=== PATIENT | male | born 1995 | race American Indian/Alaskan Native ===

== ENCOUNTER 2016-05-16 09:04 | Emergency (ER) | payer OTHER ==
--- NOTE | 2016-05-16 12:32 | Emergency Department Report ---
ED Upper Extremity Inj HPI - General Chief Complaint: Extremity Injury, Upper Stated Complaint: FELL/RT ARM INJURY Time Seen by Provider: 05/16/16 12:32 Source: patient Mode of arrival: Ambulatory Limitations: No Limitations - History of Present Illness Initial Comments: Patient reports he slipped and fell on the ice last week and injured his right wrist. Complaint: Injury to:: right, wrist Onset/Timin -: week(s) Other Extremity Injury: Wrist: Right Other Injuries: none Handedness: right Place: home Severity scale (0 -10): 4 Improves With: rest Worsens With: movement of extremity Context: fall Associated Symptoms: denies other symptoms. denies: weakness, numbness, neck pain, suspects foreign body, nausea/vomiting, heard/felt popping sensat Treatments Prior to Arrival: other (none) - Related Data Previous Rx's Medication Instructions Recorded Last Taken Type Ibuprofen [Motrin 800 MG tab] 800 mg PO Q8HR PRN #20 tablet 05/16/16 Unknown Rx Allergies Allergy/AdvReac Type Severity Reaction Status Date / Time No Known Allergies Allergy Unverified 05/16/16 09:23 ED Review of Systems ROS: Stated complaint: FELL/RT ARM INJURY Other details as noted in HPI Constitutional: denies: chills, diaphoresis, fever, malaise, weakness Respiratory: denies: cough, orthopnea, shortness of breath, SOB with exertion, SOB at rest, stridor, wheezing Cardiovascular: denies: chest pain, palpitations, dyspnea on exertion, orthopnea , edema, syncope, paroxysmal nocturnal dyspnea Musculoskeletal: arthralgia (right wrist). denies: back pain, joint swelling, myalgia Neurological: denies: headache, weakness, numbness, paresthesias, confusion, abnormal gait, vertigo Hematological/Lymphatic: denies: easy bleeding, easy bruising, swollen glands ED Past Medical Hx - Past Medical History Previous Medical History?: No - Surgical History Past Surgical History?: No - Social History Smoking Status: Never Smoker Substance Use Type: None - Medications Home Medications: Home Medications Medication Instructions Recorded Confirmed Last Taken Type Ibuprofen [Motrin 800 MG tab] 800 mg PO Q8HR PRN #20 tablet 05/16/16 Unknown Rx ED Physical Exam - General Limitations: No Limitations General appearance: alert, in no apparent distress - Head Head exam: Present: atraumatic - ENT ENT exam: Present: normal exam, mucous membranes moist. Absent: mucous membranes dry - Neck Neck exam: Present: normal inspection, full ROM. Absent: tenderness, meningismus, lymphadenopathy, thyromegaly - Respiratory Respiratory exam: Present: normal lung sounds bilaterally. Absent: respiratory distress, wheezes, rales, rhonchi, stridor, chest wall tenderness, accessory muscle use, decreased breath sounds, prolonged expiratory - Cardiovascular Cardiovascular Exam: Present: regular rate, normal rhythm, normal heart sounds. Absent: systolic murmur, diastolic murmur, rubs, gallop, clicks, JVD, S3, S4 - Expanded Upper Extremity Exam Right Elbow exam: Present: normal inspection, full ROM. Absent: tenderness, swelling , abrasion, laceration, ecchymosis, deformity, crepidus, dislocation, erythema, effusion, tenderness over radial head Forearm Wrist exam: Present: full ROM, tenderness (palpation to anterior), swelling (minimal to anterior), ecchymosis. Absent: abrasion, laceration, deformity, crepidus, dislocation, erythema, tenderness over anatomical snuff box , pain with axial thumb loading Hand Wrist exam: Present: normal inspection, full ROM. Absent: tenderness, swelling, abrasion, laceration, ecchymosis, deformity, crepidus, dislocation, erythema, amputation, nail avulsion, subungual hematoma Neuro motor exam: Present: wrist extension intact, thumb opposition intact, thumb IP flexion intact, thumb adduction intact, fingers 2-5 abduction intact Neurosensory exam: Present: 2-point discrimination, radial nerve intact, ulnar nerve intact, median nerve intact Vascular: Present: normal capillary refill, radial pulse (2+), brachial pulse (2 +), ulnar pulse (2+). Absent: vascular compromise, Pallo, pulse deficit radial art, pulse deficit ulnar art, pulse deficit brachial art - Back Exam Back exam: Present: normal inspection, full ROM. Absent: CVA tenderness (R), CVA tenderness (L), muscle spasm, paraspinal tenderness, vertebral tenderness - Neurological Exam Neurological exam: Present: alert, oriented X3, CN II-XII intact, normal gait, reflexes normal. Absent: motor sensory deficit - Skin Skin exam: Present: warm, dry, intact, normal color. Absent: rash ED Course Vital Signs 05/16/16 09:18 Temperature 98.5 F Pulse Rate 79 Respiratory 16 Rate Blood Pressure 155/90 O2 Sat by Pulse 100 Oximetry - Reevaluation(s) Reevaluation #1: 05/16/16 13:15 Analgesics and radiology studies ordered ED Medical Decision Making - Lab Data Vital Signs 05/16/16 09:18 Temperature 98.5 F Pulse Rate 79 Respiratory 16 Rate Blood Pressure 155/90 O2 Sat by Pulse 100 Oximetry - Radiology Data Radiology results: image reviewed RIGHT WRIST THREE VIEWS: 05/16/16 12:31:00 CLINICAL: Fall and pain. FINDINGS: Normal bones, joints and soft tissues. No fracture or dislocation. IMPRESSION: Normal - Medical Decision Making During the course of ED, analgesic and radiology studies were ordered. The imaging study revealed normal study. Patient was sent home with a velcro wrist splint and a prescription for Ibuprofen, instructed to follow up with the selective referral given at discharge, he verbalized understanding - Differential Diagnosis Right Wrist Pain, Right Wrist Fracture, Fall Critical care attestation.: If time is entered above; I have spent that time in minutes in the direct care of this critically ill patient, excluding procedure time. ED Disposition Clinical Impression: Right wrist pain Disposition: DISCHARGED TO HOME OR SELFCARE Is pt being admited?: No Does the pt Need Aspirin: No Condition: Stable Instructions: Wrist Injury (ED) Additional Instructions: Take medication as directed. Wear splint for comfort. Follow up with the selective referral given at discharge Prescriptions: Ibuprofen [Motrin 800 MG tab] 800 mg PO Q8HR PRN #20 tablet PRN Reason: Pain Referrals: PRIMARY MD TOMA [Primary Care Provider] - 3-5 Days DONG WATSON MD [Staff Physician] - 3-5 Days Forms: Work/School Release Form(ED) Time of Disposition: 13:38
--- NOTE | 2016-05-16 13:19 | XRay Report ---
RIGHT WRIST THREE VIEWS: 05/16/16 12:31:00 CLINICAL: Fall and pain. FINDINGS: Normal bones, joints and soft tissues. No fracture or dislocation. IMPRESSION: Normal
[2016-05-16 14:35] VITALS: BP 150/90
== END 2016-05-16 14:00 | disposition home or self-care (01) ==
LOC: ED 09:04
DX: S69.91XA Unspecified injury of right wrist, hand and finger(s), initial encounter (principal); M25.531 Pain in right wrist; W01.0XXA Fall on same level from slipping, tripping and stumbling without subsequent striking against object, initial encounter; Y93.9 Activity, unspecified; Y92.9 Unspecified place or not applicable; Y99.9 Unspecified external cause status

== ENCOUNTER 2020-10-28 09:17 | Emergency (ER) | payer OTHER ==
[2020-10-28 09:44] LABS: Basophils # (Auto) 0.1 K/mm3 (0.0-0.1); Basophils % (Auto) 0.9 % (0.0-1.8); Eosinophils # (Auto) 0.1 K/mm3 (0.0-0.4); Eosinophils % (Auto) 1.9 % (0.0-4.3); Hematocrit 44.6 % (35.5-45.6); Lymphocytes # (Auto) 2.7 K/mm3 (1.2-5.4); Lymphocytes % (Auto) 40.8 % (13.4-35.0); Mean Corpuscular HGB Conc 34 % (32-34); Mean Corpuscular Volume 85 fl (84-94); Monocytes # (Auto) 0.6 K/mm3 (0.0-0.8); Monocytes % (Auto) 8.3 % (0.0-7.3); Platelet Count 252 K/mm3 (140-440); Red Blood Count 5.23 M/mm3 (3.65-5.03); Red Cell Distribution Width 13.9 % (13.2-15.2)
[2020-10-28 10:00] LABS: Alanine Aminotransferase 35 units/L (7-56); Albumin 4.4 g/dL (3.9-5); BUN/Creatinine Ratio 8; Blood Urea Nitrogen 8 mg/dL (9-20); Calcium 9.6 mg/dL (8.4-10.2); Hemolysis Index 9
[2020-10-28 10:24] LABS: Bilirubin,Urine NEG (Negative); Blood,Urine NEG (Negative); Color,Urine Amber (Yellow); Hyaline Casts,Urine 2 /LPF; Mucus,Urine 3+ /HPF; Urobilinogen,Urine < 2.0 mg/dL (<2.0)
[2020-10-28 10:29] LABS: Amphetamine Screen,Urine Negative; Benzodiazepines Screen,Urine Negative; Cocaine Screen,Urine Negative; Methadone Screen,Urine Negative; Opiate Screen,Urine Negative
[2020-10-28 10:54] LABS: Cannabinoid Screen,Urine PRESUMPTIVE POSITIVE
--- NOTE | 2020-10-28 11:34 | Cat Scan Report ---
CT HEAD WITHOUT CONTRAST INDICATION / CLINICAL INFORMATION: Syncopal episode resulting in patient fall with head and facial injuries. TECHNIQUE: All CT scans at this location are performed using CT dose reduction for ALARA by means of automated e xposure control. COMPARISON: None available. FINDINGS: HEMORRHAGE: No evidence of intracranial hemorrhage or extra-axial fluid collection. EXTRA-AXIAL SPACES: Cortical sulci, sylvian fissures and basilar cisterns have an unremarkable appear ance. VENTRICULAR SYSTEM: The third and lateral ventricles are of normal size and configuration. CEREBRAL PARENCHYMA: No areas of abnormal brain parenchymal attenuation are identified. There is no i ndication of recent infarction. MIDLINE SHIFT OR HERNIATION: There is no mass effect. CEREBELLUM / BRAINSTEM: Brainstem and cerebellum have an unremarkable appearance. MIDLINE STRUCTURES:No abnormalities of the pituitary gland or pineal region are identified. INTRACRANIAL VESSELS:No abnormalities are identified on this noncontrast head CT. ORBITS: visualized portions of the orbits have an unremarkable appearance. SOFT TISSUES of HEAD: Multifocal scalp calcifications are observed. A left forehead scalp hematoma is demonstrated. CALVARIUM: Evaluation of bone windows reveals no abnormalities. PARANASAL SINUSES / MASTOID AIR CELLS: Visualized portions of the paranasal sinuses are free from inf lammatory mucosal disease. Mastoid air cells are normally pneumatized. IMPRESSION: 1. No intracranial abnormalities on head CT without contrast. Signer Name: Roberto Villanueva MD Signed: 10/28/2020 11:30 AM Workstation Name: [id number]
--- NOTE | 2020-10-28 11:42 | Cat Scan Report ---
CT MAXILLOFACIAL WITHOUT CONTRAST INDICATION / CLINICAL INFORMATION: Syncopal episodes resulting in patient fall with head and facial injuries. Facial swelling and abrasi ons. TECHNIQUE: All CT scans at this location are performed using CT dose reduction for ALARA by means of automated e xposure control. COMPARISON: None available. FINDINGS: FACIAL BONES: No fracture or other significant abnormality. Soft tissue face: A scalp hematoma is present at the left forehead extending down to the preseptal sp jose in the region of the upper left eyelid and bridge of nose. OYSTER SORTER SPACES:Evaluation of the superintendent operations division space structures reveal no abnormalities. SALIVARY GLANDS: No abnormality. PARANASAL SINUSES: No significant abnormality. NASAL CAVITY: Mild pneumatization of the stalk of the left middle turbinate is noted. No significant abnormality. ORBITS: Globes, optic nerves and extraocular muscles have an unremarkable appearance. TEMPORAL BONES:Visualized mastoid air cells and the middle ear cavities are normally pneumatized. VISUALIZED INTRACRANIAL STRUCTURES: Please refer to CT head report which is dictated separately. IMPRESSION: 1. Left forehead scalp hematoma. 2. No indication of facial fracture. Signer Name: Roberto Villanueva MD Signed: 10/28/2020 11:37 AM Workstation Name: [id number]
--- NOTE | 2020-10-28 11:43 | Cat Scan Report ---
CT CERVICAL SPINE WITHOUT CONTRAST INDICATION / CLINICAL INFORMATION: Syncopal episode resulting in patient fall. Neck pain. TECHNIQUE: Axial CT images were obtained through the cervical spine. Sagittal and coronal reformatted images wer e produced. All CT scans at this location are performed using CT dose reduction for ALARA by means of automated exposure control. COMPARISON: None available. FINDINGS: ALIGNMENT: No significant abnormality. VERTEBRAE: No significant abnormality. DISC SPACES: No significant abnormality. DEGENERATIVE CHANGES: No significant degenerative changes. No indication of disc herniation, central canal stenosis or neuroforaminal narrowing. CRANIOCERVICAL JUNCTION:No significant abnormality. SPINAL CANAL: Central spinal canal is adequately maintained throughout. PARASPINAL SOFT TISSUES: No significant abnormality. ADDITIONAL FINDINGS: None. LUNG APICES: Lung apices are largely excluded. IMPRESSION: 1. No indication of fracture, traumatic subluxation or degenerative change. Signer Name: Roberto Villanueva MD Signed: 10/28/2020 11:39 AM Workstation Name: [employer] [id number]
--- NOTE | 2020-10-28 11:58 | Emergency Department Report ---
ED Syncope HPI - General Chief Complaint: Syncope Stated Complaint: FACIAL INJURY Time Seen by Provider: 10/28/20 10:17 Source: patient, RN notes reviewed Exam Limitations: no limitations - History of Present Illness Initial Comments: This is a 25-year-old male nontoxic, well nourished in appearance, no acute signs of distress presents to the ED with c/o of syncopal episode that occurred 2 days ago at 3 AM. Patient stated he was in a car and started to become dizzy and had a syncopal episode outside and fell to his left facial area. Patient stated has slight headache and neck pain after 2 syncopal episode. Patient stated mother bystander was present during this occurrence. Patient denies any alcohol or drug consumption. Patient denies any injuries or trauma prior to syncopal episode. Currently patient denies any dizziness. Patient denies any numbness, tingling, headache, stiff neck, chest pain, shortness of breathe, numbness or tingling. Denies any visual changes or blurry vision. Denies any drug allergies. Patient state he is not up-to-date with tetanus. Precipitating Factors: Positive: lightheadedness. Negative: blurred vision, confusion, diaphoresis, injury, nausea, pain, recent head trauma, rapid heart beat Context: standing Loss of Consciousness: brief (seconds) Current Symptoms: back to normal, headache. denies: blurred vision, chest pain, diaphoresis, dizziness, injury, lightheadedness, loss of bladder control, loss of bowel control, motionless, nausea, pale, shallow/rapid breathing, weak/absent pulse, weakness - Related Data Allergies/Adverse Reactions: Allergies No Known Allergies Allergy (Verified 10/28/20 09:22) Home Medications: Ambulatory Orders Ibuprofen [Motrin 800 MG tab] 800 mg PO Q8HR PRN #20 tablet 05/16/16 cephALEXin [Keflex] 500 mg PO Q8HR #21 cap 10/28/20 ED Review of Systems ROS: Stated complaint: FACIAL INJURY Other details as noted in HPI Comment: All other systems reviewed and negative Constitutional: denies: chills, fever Eyes: denies: eye pain, eye discharge, vision change ENT: denies: ear pain, throat pain Respiratory: denies: cough, shortness of breath, wheezing Cardiovascular: denies: chest pain, palpitations Endocrine: no symptoms reported Gastrointestinal: denies: abdominal pain, nausea, diarrhea Genitourinary: denies: urgency, dysuria Musculoskeletal: denies: back pain, joint swelling, arthralgia Skin: denies: rash, lesions Neurological: headache. denies: weakness, numbness, paresthesias, confusion, abnormal gait, vertigo Psychiatric: denies: anxiety, depression Hematological/Lymphatic: denies: easy bleeding, easy bruising ED Past Medical Hx - Social History Smoking Status: Never Smoker Substance Use Type: None - Medications Home Medications: Home Medications Medication Instructions Recorded Confirmed Last Taken Type Ibuprofen [Motrin 800 MG tab] 800 mg PO Q8HR PRN #20 tablet 05/16/16 Unknown Rx cephALEXin [Keflex] 500 mg PO Q8HR #21 cap 10/28/20 Unknown Rx ED Physical Exam - General Limitations: No Limitations General appearance: alert, in no apparent distress - Head Head exam: Present: normocephalic - Expanded Head Exam Expanded Head exam: Present: abrasion 1 - abrasion here 2 - abrasion here - Eye Eye exam: Present: normal appearance, PERRL, EOMI - ENT ENT exam: Present: normal exam, normal orophraynx, other (Normal carotid exam. No carotid bruits.) - Neck Neck exam: Present: normal inspection, full ROM. Absent: lymphadenopathy - Respiratory Respiratory exam: Present: normal lung sounds bilaterally. Absent: respiratory distress, wheezes, rales, rhonchi, stridor, chest wall tenderness, accessory muscle use, decreased breath sounds, prolonged expiratory - Cardiovascular Cardiovascular Exam: Present: regular rate, normal rhythm, normal heart sounds. Absent: bradycardia, tachycardia, irregular rhythm, systolic murmur, diastolic murmur, rubs, gallop - GI/Abdominal GI/Abdominal exam: Present: soft, normal bowel sounds. Absent: distended, tenderness, guarding, rebound, rigid, diminished bowel sounds - Extremities Exam Extremities exam: Present: normal inspection, full ROM - Back Exam Back exam: Present: normal inspection, full ROM, paraspinal tenderness (Cervical paraspinal). Absent: tenderness, CVA tenderness (R), CVA tenderness (L), muscle spasm, vertebral tenderness, rash noted - Neurological Exam Neurological exam: Present: alert, oriented X3, normal gait - Expanded Neurological Exam Expanded Patient oriented to: Present: person, place, time Cranial nerves: EOM's Intact: Normal, Facial Sensation: Normal Cerebellar function: Finger to Nose: Normal Upper motor neuron: Pronator Drift: Normal, Sensory Extinction: Normal Motor strength exam: RUE: 5, LUE: 5, RLE: 5, LLE: 5 Best Eye Response (Katina): (4) open spontaneously Best Motor Response (Katina): (6) obeys commands Best Verbal Response (Katina): (5) oriented Katina Total: 15 - Psychiatric Psychiatric exam: Present: normal affect, normal mood - Skin Skin exam: Present: warm, dry, intact, normal color. Absent: rash ED Course Vital Signs 10/28/20 10/28/20 10/28/20 09:20 09:38 09:46 Temperature 98.3 F Pulse Rate 70 59 L Respiratory 18 19 18 Rate Blood Pressure 128/77 138/75 O2 Sat by Pulse 99 98 99 Oximetry 10/28/20 10/28/20 10/28/20 10:00 10:16 10:30 Temperature Pulse Rate 63 58 L 54 L Respiratory 18 19 17 Rate Blood Pressure 130/82 130/71 123/70 O2 Sat by Pulse 97 98 99 Oximetry 10/28/20 10/28/20 10:46 11:00 Temperature Pulse Rate 56 L 55 L Respiratory 17 12 Rate Blood Pressure 125/72 125/72 O2 Sat by Pulse 98 98 Oximetry - Reevaluation(s) Reevaluation #1: 10/28/20 12:14 Patient is speaking in full sentences with no signs of distress noted. ED Medical Decision Making - Lab Data Result diagrams: 10/28/20 09:28 10/28/20 09:28 Lab Results 10/28/20 10/28/20 10/28/20 Range/Units 09:28 09:28 10:12 WBC 6.6 (4.5-11.0) K/mm3 RBC 5.23 H (3.65-5.03) M/mm3 Hgb 15.0 (11.8-15.2) gm/dl Hct 44.6 (35.5-45.6) % MCV 85 (84-94) fl MCH 29 (28-32) pg MCHC 34 (32-34) % RDW 13.9 (13.2-15.2) % Plt Count 252 (140-440) K/mm3 Lymph % (Auto) 40.8 H (13.4-35.0) % [place] % (Auto) 8.3 H (0.0-7.3) % Eos % (Auto) 1.9 (0.0-4.3) % Baso % (Auto) 0.9 (0.0-1.8) % Lymph # (Auto) 2.7 (1.2-5.4) K/mm3 [place] # (Auto) 0.6 (0.0-0.8) K/mm3 Eos # (Auto) 0.1 (0.0-0.4) K/mm3 Baso # (Auto) 0.1 (0.0-0.1) K/mm3 Seg Neutrophils % 48.1 (40.0-70.0) % Seg Neutrophils # 3.2 (1.8-7.7) K/mm3 Sodium 140 (137-145) mmol/L Potassium 3.4 L (3.6-5.0) mmol/L Chloride 105.2 (98-107) mmol/L Carbon Dioxide 26 (22-30) mmol/L Anion Gap 12 mmol/L BUN 8 L (9-20) mg/dL Creatinine 1.0 (0.8-1.3) mg/dL Estimated GFR > 60 ml/min BUN/Creatinine Ratio 8 % Glucose 84 (75-100) mg/dL Calcium 9.6 (8.4-10.2) mg/dL Total Bilirubin 0.40 (0.1-1.2) mg/dL AST 22 (5-40) units/L ALT 35 (7-56) units/L Alkaline Phosphatase 56 (35-129) units/L Total Protein 7.3 (6.3-8.2) g/dL Albumin 4.4 (3.9-5) g/dL Albumin/Globulin Ratio 1.5 % Urine Color Radha (Yellow) Urine Turbidity Clear (Clear) Urine pH 5.0 (5.0-7.0) Ur Specific [place] 1.034 H (1.003-1.030) Urine Protein 100 mg/dl (Negative) mg/dL Urine Glucose (UA) Neg (Negative) mg/dL Urine Ketones Neg (Negative) mg/dL Urine Blood Neg (Negative) Urine Nitrite Neg (Negative) Urine Bilirubin Neg (Negative) Urine Urobilinogen < 2.0 (<2.0) mg/dL Ur Leukocyte Esterase Neg (Negative) Urine WBC (Auto) 8.0 H (0.0-6.0) /HPF Urine RBC (Auto) 2.0 (0.0-6.0) /HPF U Epithel Cells (Auto) < 1.0 (0-13.0) /HPF Hyaline Casts 2 /LPF Urine Mucus 3+ /HPF Urine Opiates Screen Urine Methadone Screen Ur Barbiturates Screen Ur Phencyclidine Scrn Ur Amphetamines Screen U Benzodiazepines Scrn Urine Cocaine Screen U Marijuana (THC) Screen Drugs of Abuse Note 10/28/20 Range/Units 10:12 WBC (4.5-11.0) K/mm3 RBC (3.65-5.03) M/mm3 Hgb (11.8-15.2) gm/dl Hct (35.5-45.6) % MCV (84-94) fl MCH (28-32) pg MCHC (32-34) % RDW (13.2-15.2) % Plt Count (140-440) K/mm3 Lymph % (Auto) (13.4-35.0) % [place] % (Auto) (0.0-7.3) % Eos % (Auto) (0.0-4.3) % Baso % (Auto) (0.0-1.8) % Lymph # (Auto) (1.2-5.4) K/mm3 [place] # (Auto) (0.0-0.8) K/mm3 Eos # (Auto) (0.0-0.4) K/mm3 Baso # (Auto) (0.0-0.1) K/mm3 Seg Neutrophils % (40.0-70.0) % Seg Neutrophils # (1.8-7.7) K/mm3 Sodium (137-145) mmol/L Potassium (3.6-5.0) mmol/L Chloride (98-107) mmol/L Carbon Dioxide (22-30) mmol/L Anion Gap mmol/L BUN (9-20) mg/dL Creatinine (0.8-1.3) mg/dL Estimated GFR ml/min BUN/Creatinine Ratio % Glucose (75-100) mg/dL Calcium (8.4-10.2) mg/dL Total Bilirubin (0.1-1.2) mg/dL AST (5-40) units/L ALT (7-56) units/L Alkaline Phosphatase (35-129) units/L Total Protein (6.3-8.2) g/dL Albumin (3.9-5) g/dL Albumin/Globulin Ratio % Urine Color (Yellow) Urine Turbidity (Clear) Urine pH (5.0-7.0) Ur Specific [place] (1.003-1.030) Urine Protein (Negative) mg/dL Urine Glucose (UA) (Negative) mg/dL Urine Ketones (Negative) mg/dL Urine Blood (Negative) Urine Nitrite (Negative) Urine Bilirubin (Negative) Urine Urobilinogen (<2.0) mg/dL Ur Leukocyte Esterase (Negative) Urine WBC (Auto) (0.0-6.0) /HPF Urine RBC (Auto) (0.0-6.0) /HPF U Epithel Cells (Auto) (0-13.0) /HPF Hyaline Casts /LPF Urine Mucus /HPF Urine Opiates Screen Negative Urine Methadone Screen Negative Ur Barbiturates Screen Negative Ur Phencyclidine Scrn Negative Ur Amphetamines Screen Negative U Benzodiazepines Scrn Negative Urine Cocaine Screen Negative U Marijuana (THC) Screen Presumptive positive Drugs of Abuse Note Disclamer - EKG Data 10/28/20 09:24 Sinus bradycardia at 58 bpm. No STEMI. No ST or T wave MIs. Reviewed and signed by MD - Radiology Data [facility] [address] [place] [address] Cat Scan Report Signed Patient: DEE SALES MR#: [id number] : 1995 Acct:[id number] Age/Sex: 25 / M ADM Date: 10/28/20 Loc: ED Attending Dr: Ordering Physician: RAI ZARCO NP Date of Service: 10/28/20 Procedure(s): CT head/brain wo con Accession Number(s): [id number] cc: RAI ZARCO NP CT HEAD WITHOUT CONTRAST INDICATION / CLINICAL INFORMATION: Syncopal episode resulting in patient fall with head and facial injuries. TECHNIQUE: All CT scans at this location are performed using CT dose reduction for ALARA by means of automated exposure control. COMPARISON: None available. FINDINGS: HEMORRHAGE: No evidence of intracranial hemorrhage or extra-axial fluid herbie ection. EXTRA-AXIAL SPACES: Cortical sulci, sylvian fissures and basilar cisterns have an unremarkable appearance. VENTRICULAR SYSTEM: The third and lateral ventricles are of normal size and configuration. CEREBRAL PARENCHYMA: No areas of abnormal brain parenchymal attenuation are identified. There is no indication of recent infarction. MIDLINE SHIFT OR HERNIATION: There is no mass effect. CEREBELLUM / BRAINSTEM: Brainstem and cerebellum have an unremarkable appearance. MIDLINE STRUCTURES:No abnormalities of the pituitary gland or pineal region are identified. INTRACRANIAL VESSELS:No abnormalities are identified on this noncontrast head CT. ORBITS: visualized portions of the orbits have an u nremarkable appearance. SOFT TISSUES of HEAD: Multifocal scalp calcifications are observed. A left forehead scalp hematoma is demonstrated. CALVARIUM: Evaluation of bone windows reveals no abnormalities. PARANASAL SINUSES / MASTOID AIR CELLS: Visualized portions of the paranasal sinuses are free from inflammatory mucosal disease. Mastoid air cells are normally pneumatized. IMPRESSION: 1. No intracranial abnormalities on head CT without contrast. Signer Name: Roberto Villanueva MD Signed: 10/28/2020 11:30 AM Workstation Name: [id number] Transcribed By: Dictated By: Roberto Villanueva MD Electronically Authenticated By: Roberto Villanueva MD Signed Date/Time: 10/28/20 1130 DD/ 1128 TD/TT: [facility] [address] [place] [address] Cat Scan Report Signed Patient: DEE SALES MR#: [id number] : 1995 Acct:[id number] Age/Sex: 25 / M ADM Date: 10/28/20 Loc: ED Attending Dr: Ordering Physician: RAI ZARCO NP Date of Service: 10/28/20 Procedure(s): CT facial bones wo con Accession Number(s): [id number] cc: RAI ZARCO NP CT MAXILLOFACIAL WITHOUT CONTRAST INDICATION / CLINICAL INFORMATION: Syncopal episodes resulting in patient fall with head and facial injuries. Facial swelling and abrasions. TECHNIQUE: All CT scans at this location are performed using CT dose reduction for ALARA by means of automated exposure control. COMPARISON: None available. FINDINGS: FACIAL BONES: No fracture or o ther significant abnormality. Soft tissue face: A scalp hematoma is present at the left forehead extending down to the preseptal space in the region of the upper left eyelid and bridge of nose. SET MAKING MACHINE OPERATOR SPACES:Evaluation of the polymer specialist space structures reveal no abnormalities. SALIVARY GLANDS: No abnormality. PARANASAL SINUSES: No significant abnormality. NASAL CAVITY: Mild pneumatization of the stalk of the left middle turbinate is noted. No significant abnormality. ORBITS: Globes, optic nerves and extraocular muscles have an unremarkable appearance. TEMPORAL BONES:Visualized mastoid air cells and the middle ear cavities are normally pneumatized. VISUALIZED INTRACRANIAL STRUCTURES: Please refer to CT head report which is dictated separately. IMPRESSION: 1. Left forehead scalp hematoma. 2. No indication of facial fracture. Signer Name: Roberto Villanueva MD Signed: 10/28/2020 11:37 AM Workstation Name: [id number] Transcribed By: Dictated By: Roberto Villanueva MD Electronically Authenticated By: Roberto Villanueva MD Signed Date/Time: 10/28/20 113 DD/ 1130 TD/TT: [facility] [address] [place] [address] Cat Scan Report Signed Patient: DEE SALES MR#: [id number] : 1995 Acct:[id number] Age/Sex: 25 / M ADM Date: 10/28/20 Loc: ED Attending Dr: Ordering Physician: RAI ZARCO NP Date of Service: 10/28/20 Procedure(s): CT cervical spine wo con Accession Number(s): [id number] cc: RAI ZARCO NP CT CERVICAL SPINE WITHOUT CONTRAST INDICATION / CLINICAL INFORMATION: Syncopal episode resulting in patient fall. Neck pain. TECHNIQUE: Axial CT images were obtained through the cervical spine. Sagittal and coronal reformatted images were produced. All CT scans at this location are performed using CT dose reduction for ALARA by means of automated exposure control. COMPARISON: None available. FINDINGS: ALIGNMENT: No significant abnormality. VERTEBRAE: No significant abnormality. DISC SPACES: No significant abnormality. DEGENERATIVE CHANGES: No significant degenerative changes. No indication of disc herniation, central canal stenosis or neuroforaminal narrowing. CRANIOCERVICAL JUNCTION:No significant abnormality. SPINAL CANAL: Central spinal canal is adequately maintained throughout. PARASPINAL SOFT TISSUES: No significant abnormality. ADDITIONAL FINDINGS: None. LUNG APICES: Lung apices are largely excluded. IMPRESSION: 1. No indication of fracture, traumatic subluxation or degenerative change. Signer Name: Roberto Villanueva MD Signed: 10/28/2020 11:39 AM Workstation Name: [id number] Transcribed By: Dictated By: Roberto Villanueva MD Electronically Authenticated By: Roberto Villanueva MD Signed Date/Time: 10/28/20 1139 DD/ 1138 TD/TT: - Medical Decision Making 25-year-old male that presents with syncopal episode with facial abrasions. Patient is stable and was examined by me. Labs has been obtained. UA obtained. EKG obtained. Patient is notified of the labs and imaging results with no questions noted by the patient. Patient did receive a tetanus in the ER. Patient be discharged with Keflex for facial abrasions. Otherwise physical exam is unremarkable. Patient was instructed to follow-up with a primary care doctor in 3-5 days or if symptoms worsen and continue return to emergency room as soon as possible. At time of discharge, the patient does not seem toxic or ill in appearance. No acute signs of distress noted. Patient agrees to discharge treatment plan of care. No further questions noted by the patient. Critical care attestation.: If time is entered above; I have spent that time in minutes in the direct care of this critically ill patient, excluding procedure time. ED Disposition Clinical Impression: Syncope Qualifiers: Syncope type: unspecified Qualified Code(s): R55 - Syncope and collapse Facial abrasion Qualifiers: Encounter type: initial encounter Qualified Code(s): S00.81XA - Abrasion of other part of head, initial encounter Sprain of cervical neck Qualifiers: Encounter type: initial encounter Qualified Code(s): S13.9XXA - Sprain of joints and ligaments of unspecified parts of neck, initial encounter Head contusion Qualifiers: Encounter type: initial encounter Contusion of head detail: scalp Qualified Code(s): S00.03XA - Contusion of scalp, initial encounter Disposition: DC- TO HOME OR SELFCARE Is pt being admited?: No Does the pt Need Aspirin: No Condition: Stable Instructions: Syncope, Syncope (ED) Additional Instructions: Follow-up with a primary care doctor in 3-5 days or if symptoms worsen and continue return to emergency room as soon as possible. Prescriptions: cephALEXin [Keflex] 500 mg PO Q8HR #21 cap Referrals: [facility] [Other] - 3-5 Days PRIMARY CAREMD [Referring] - 3-5 Days TEAGAN VASQUEZ MD [Staff Physician] - 3-5 Days Forms: Work/School Release Form(ED) Time of Disposition: 12:18
[2020-10-28] MEDS ORDERED: TETANUS,DIPH,PERTUSS(ACELL) VACCINE 0.5 ML SYRINGE IM ONE (12:07)
[2020-10-28 12:30] VITALS: BP 128/76
--- NOTE | 2020-10-29 11:13 | Electrocardiograph Report ---
[facility] Test Date: 2020-10-28 Test Time: 09:24:31 Pat Name: DEE SALES Department: Room: Gender: M Insurance Follow Up Specialist: DAVID : 1995 Requested By: ED DOC Order Number: [id number] Reading MD: Alan Harden Measurements Intervals [place] Rate: 58 P: 4 [place]: 171 QRS: 34 QRSD: 92 T: 18 QT: 409 QTc: 401 Interpretive Statements Sinus bradycardia No previous ECG available for comparison Electronically Signed On 10-29-2020 11:13:30 EDT by Alan Harden
== END 2020-10-28 12:29 | disposition home or self-care (01) ==
LOC: ED 09:17
DX: S13.9XXA Sprain of joints and ligaments of unspecified parts of neck, initial encounter (principal); S00.81XA Abrasion of other part of head, initial encounter; S00.03XA Contusion of scalp, initial encounter; R55 Syncope and collapse; Z79.899 Other long term (current) drug therapy; X58.XXXA Exposure to other specified factors, initial encounter; Y93.89 Activity, other specified; Y92.89 Other specified places as the place of occurrence of the external cause; Y99.8 Other external cause status
CPT/HCPCS: 36415; 70450; 70486; 72125; 80053; 80307; 81001; 85025; 90471; 93005